=== PATIENT | female | born 1950 | race Caucasian/White ===

== ENCOUNTER 2016-11-29 08:43 | Emergency (ER) | payer OTHER ==
[~2016-11-29] VITALS: Ht 160 cm; Wt 99.3 kg
[~2016-11-29 08:43] MED LIST: ANTIVERT25 MG PO; ATIVAN0.5 M1 PO; DOXYCYCLINE MO100 MG PO; LISINOPRIL20 MG PO; PRAVASTATIN SOD80 MG PO; RANITIDINE150 MG PO; TESSALON PERLE100 MG PO
--- NOTE | 2016-11-29 08:57 | ED GI/GU/ABDOMINAL COMPLAINT ---
History of Present Illness General Chief Complaint: Nausea, Vomiting, Diarrhea Stated Complaint: N/V/D Source: patient, family, old records Exam Limitations: no limitations Vital Signs & Intake/Output Vital Signs & Intake/Output Vital Signs Date Time Temp Pulse Resp B/P B/P Pulse O2 O2 Flow FiO2 Mean Ox Delivery Rate 11/29 0846 98.1 74 15 166/95 97 Room Air Room Air Allergies Coded Allergies: MDX - PCN (penicillin) (PCN (PENICILLIN)) (Mild, HIVES 11/29/16) MDX - Sulfamethoxazole (From BACTRIM) (Mild, HIVES 11/29/16) MDX - Trimethoprim (From BACTRIM) (Mild, HIVES 11/29/16) Uncoded Allergies: CODIENE (Mild, PALPITATIONS 11/05/12) Triage Note: PT TO ED FOR NAUSEA, DRY HEAVING AND DIFFUSE ABD PAIN, AND LOWER BACK PAIN THAT STARTED THREE DAYS AGO. PT REPORTS SHE IS UNDER A LOT OF STRESS AND IS NOT SURE IF IT'S RELATED TO THAT. COMPLAINTS OF INDIGESTION. DENIES SOB. +DIARRHEA X 3 TIMES TODAY. Triage Nurses Notes Reviewed? yes ? n Is pt currently ? No HPI: Patient is a 66-year-old female presents complaining of nausea, vomiting, diarrhea, abdominal discomfort. Patient reports she's been having a diffuse epigastric nausea discomfort the past 3 days. One episode of bilious vomiting this morning, 3 episodes of diarrhea this morning. Patient with history of chronic back pain, has been worse over the past 1 week. Approximately 1.5 weeks ago patient's grandson was in a severe motor vehicle accident and is in critical condition and patient believes that her symptoms are at least partially attributable to stress and anxiety. Patient was started on BuSpar 2 days ago which helps with her nerves but has not been helping with her abdominal discomfort. Patient took 300 mg of ranitidine this morning with mild improvement. Patient also drinking seltzer with mild improvement. Positive urinary frequency Patient denies fevers, chills, chest pain, dysuria. (FELIPE SARAVIA,BATOOL) Reconcile Medications Benzonatate (Tessalon Perle) 100 MG SGL 1 CAP PO TID COUGH DOXYCYCLINE MONOHYDRATE (Doxycycline Monohydrate) 100 MG CAP 1 TAB PO BID SINUSITIS Lisinopril 20 MG TAB 1 TAB PO DAILY HEART (Reported) Lorazepam (Ativan) 0.5 MG TAB 1 TAB PO BID ANXIETY (Reported) Meclizine (Antivert) 25 MG TABLET 1 TAB PO TID PRN DIZZINESS Metoclopramide HCl (Reglan) 10 MG TABLET 1 TAB PO 4 TIMES/DAY PRN nausea Ondansetron (Zofran Odt) 4 MG TAB.RAPDIS 1 TAB SL TID PRN nausea Pravastatin Sodium 80 MG TAB 1 TAB PO QPM CHOLESTEROL (Reported) RANITIDINE HCL (Ranitidine HCl) 150 MG TAB 1 TAB PO DAILY GI (Reported) (SABIHA GOTTLIEB,HOOD Duran) Past History Travel History Traveled to [place] past 21 day No Medical History Any Pertinent Medical History? 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 No (BATOOL PALACIOS) Review of Systems Review of Systems Constitutional: Denies: chills, fever. EENTM: Reports: no symptoms. Respiratory: Denies: cough, short of breath. Cardiovascular: Denies: chest pain. GI: Reports: see HPI. Genitourinary: Reports: frequency. Musculoskeletal: Reports: back pain (BILATERAL LUMBAR). Skin: Reports: no symptoms. Neurological/Psychological: Reports: see HPI, anxiety. Hematologic/Endocrine: Reports: no symptoms. Immunologic/Allergic: Reports: no symptoms. (BATOOL PALACIOS) Physical Exam Physical Exam General Appearance: alert, awake Head: atraumatic, normal appearance Eyes: Bilateral: normal appearance, PERRL, EOMI. Ears, Nose, Throat, Mouth: hearing grossly normal, moist mucous membrane Neck: normal inspection, supple, full range of motion Respiratory: normal breath sounds, chest non-tender, no respiratory distress, lungs clear Cardiovascular: regular rate/rhythm Gastrointestinal: normal bowel sounds, soft, mild RUQ tenderness, LLQ tenderness and epigastric tenderness, no palpable pulsatile masses Back: normal inspection, normal range of motion, no vertebral tenderness Extremities: normal range of motion Neurologic/Psych: no motor/sensory deficits, awake, alert, oriented x 3, normal gait Skin: intact, normal color, warm/dry Core Measures ACS in differential dx? Yes ASA ordered for poss ACS? No-ACS ruled out Severe Sepsis Present: No Septic Shock Present: No (FELIPE SARAVIA,BATOOL) Progress Differential Diagnosis: AAA, AMI, appendicitis, bowel obstruction, diverticulitis, gastritis, hepatitis, ischemic bowel, inflamm bowel dis, kidney stone, pancreatitis, SBO, threatened AB, UTI/pyelo Plan of Care: Orders Procedure Date/time Status LACTIC ACID 11/29 1211 Active Add-on Test (ER Only) 11/30 947 Active CULTURE,URINE 11/29 910 Active URINALYSIS 11/29 910 Complete TROPONIN LEVEL 11/29 910 Complete LIPASE 11/29 910 Complete LACTIC ACID 11/29 910 Complete COMPREHENSIVE METABOLIC PANEL 11/29 910 Complete CBC WITHOUT DIFFERENTIAL 11/29 910 Complete AMYLASE 11/29 910 Complete EKG 11/29 0851 Active Laboratory Tests 11/29/16 0922: Anion Gap 10, Estimated GFR 49 L, BUN/Creatinine Ratio 13.6, Glucose 92, Lactic Acid 0.9, Calcium 9.7, Total Bilirubin 0.9, AST 23, ALT 40, Alkaline Phosphatase 81, Troponin I < 0.01, Total Protein 7.3, Albumin 4.4, Globulin 2.9, Albumin/ Globulin Ratio 1.5, Amylase 66, Lipase 48, CBC w Diff NO MAN DIFF REQ, RBC 5.19, MCV 85.8, MCH 28.5, RDW 14.7 H, MPV 8.2, Gran % 63.9, Lymphocytes % 27.7, Monocytes % 7.2, Eosinophils % 0.6, Basophils % 0.6, Absolute Granulocytes 4.4, Absolute Lymphocytes 1.9, Absolute Monocytes 0.5, Absolute Eosinophils 0, Absolute Basophils 0, PUBS MCHC 33.3 11/29/16 0918: Urinalysis LIGHT H, Urine Color YEL, Urine Clarity CLEAR, Urine pH 5.5, Ur Specific [place] >= 1.030, Urine Protein NEG, Urine Ketones NEG, Urine Nitrite NEG, Urine Bilirubin NEG, Urine Urobilinogen 0.2, Ur Leukocyte Esterase NEG, Ur Microscopic SEDIMENT EXAMINED, Urine RBC 1-3, Urine WBC 1-3 H, Ur Epithelial Cells FEW, Urine Bacteria FEW H, Urine Mucus FEW, Urine Hemoglobin SMALL H, Urine Glucose NEG Microbiology 11/29 910 URINE ROUT: Urine Culture - RECD 1050: Discussed with and seen by Dr. Sears. Results discussed with patient. Patient afebrile, nontoxic-appearing, appears stable for discharge with outpatient follow-up. (FELIPE SARAVIA,BATOOL) Diagnostic Imaging: Viewed by Me: CT Scan. Discussed w/RAD: CT Scan. Initial ED EKG: normal axis, normal intervals, normal p-waves, normal QRS complex, normal sinus rhythm, no ST T wave changes Prior EKG: unchanged Comments: PATIENT: ASHA TAY PRESENT AGE: 66 PATIENT ACCOUNT NO: [id number] : 48 LOCATION: [facility] ORDERING PHYSICIAN: BATOOL SARAVIA SERVICE DATE: 11/29/16 EXAM TYPE: CAT - CT ABD & PELVIS W IV CONTRAST EXAMINATION: CT ABDOMEN AND PELVIS WITH CONTRAST CLINICAL INFORMATION: 66-year-old female with vomiting, diarrhea and mid left abdominal pain. COMPARISON: None TECHNIQUE: Multidetector volumetric imaging was performed of the abdomen and pelvis before and after the IV administration of 98 mL of Optiray 320 intravenous contrast. Sagittal and coronal reformatted images were obtained on the technologist's workstation. DLP: 839.93 mGy-cm FINDINGS: LUNG BASES: Mild dependent atelectasis is noted. There is also mild linear subsegmental atelectasis scarring seen within the right middle lobe. No pericardial effusion. LIVER, GALLBLADDER, AND BILIARY TREE: The liver is normal in size, shape, and attenuation. No focal hepatic lesion or biliary ductal dilatation is present. The patient is status post cholecystectomy. PANCREAS: Unremarkable. SPLEEN: Unremarkable. ADRENAL GLANDS: Unremarkable. KIDNEYS AND URETERS: The kidneys are normal in size, shape, and attenuation. No hydronephrosis, hydroureter, or calculi seen. No perinephric stranding. BLADDER: Unremarkable. GASTROINTESTINAL TRACT: There is no bowel obstruction, free intraperitoneal air or fluid. The appendix is within normal limits. Mild colonic diverticulosis is noted without CT evidence of acute diverticulosis. ABDOMINAL WALL: No significant hernia is appreciated. LYMPH NODES: No mesenteric, retroperitoneal or pelvic lymphadenopathy. VASCULAR: Nonaneurysmal abdominal aorta containing mild atherosclerotic calcification. Mild vascular calcifications noted within the left kidney. Portal veins are patent. PELVIC VISCERA: Uterus is not visualized. No adnexal mass. No pelvic free fluid. OSSEOUS STRUCTURES: No aggressive osseous lesions. Degenerative changes are seen throughout the thoracolumbar spine with moderate to severe degenerative disc disease identified. IMPRESSION: 1. No acute intra-abdominal or pelvic abnormality. 2. Mild diverticulosis without CT evidence of acute diverticulosis. DICTATED BY: JAMES REYNOLDS DO DATE/TIME DICTATED:11/29/161024 REAL ESTATE PROFESSIONAL:DILAN DATE/TIME TRANSCRIBED:11/29/161024 CONFIDENTIAL, DO NOT COPY WITHOUT APPROPRIATE AUTHORIZATION. <Electronically signed in Other Vendor System> SIGNED BY: JAMES REYNOLDS DO 1040 (BATOOL PALACIOS) Departure Departure Disposition: HOME OR SELF CARE Condition: Stable Clinical Impression Primary Impression: Abdominal discomfort Secondary Impressions: Grief reaction Referrals: LINDA CASTRO,SINDI Murcia (PCP/Family) Additional Instructions: Follow up with her primary care provider within one week for further evaluation. Return to the emergency department if unable to stay hydrated, fevers, or worsening of symptoms. 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 I have also reviewed all the pertinent lab results and diagnostic results. I agree with the findings and the plan of care as documented in the PA's/ELEMENTARY SCHOOL ART TEACHER's documentation. [] I have reviewed the ED Record and agree with the PA's/ELEMENTARY SCHOOL ART TEACHER's documentation. [] Additions or exceptions (if any) to the PAs/ELEMENTARY SCHOOL ART TEACHER's note and plan are summarized below: [] (SABIHA GOTTLIEB,HOOD Duran)
[2016-11-29 09:46] LABS: ABSOLUTE BASOPHIL COUNT 0 /CUMM (0.0-0.2); ABSOLUTE EOSINOPHIL COUNT 0 /CUMM (0.0-0.7); ABSOLUTE GRANULOCYTE CT 4.4 /CUMM (1.4-6.5); ABSOLUTE LYMPH COUNT 1.9 /CUMM (1.2-3.4); ABSOLUTE MONOCYTE COUNT 0.5 /CUMM (0.10-0.60); BASOPHIL % 0.6 % (0.0-2.0); EOSINOPHIL % 0.6 % (0-5); GRANULOCYTE % 63.9 % (42.2-75.2); HEMATOCRIT 44.5 % (37-47); MEAN CORPUSCULAR HGB 28.5 PG (27.0-31.0); MEAN CORPUSCULAR HGB CONC 33.3 G/DL (33.0-37.0); MEAN CORPUSCULAR VOLUME 85.8 FL (81.0-99.0); MEAN PLATELET VOLUME 8.2 FL (7.4-10.4); PLATELET COUNT 222 /CUMM (130-400); RBC DISTRIBUTION WIDTH 14.7 % (11.5-14.5); RED BLOOD CELL CT 5.19 /CUMM (4.20-5.40); WHITE BLOOD CELL COUNT 6.9 /CUMM (4.8-10.8)
--- NOTE | 2016-11-29 10:40 | CT SCAN REPORT ---
EXAMINATION: CT ABDOMEN AND PELVIS WITH CONTRAST CLINICAL INFORMATION: 66-year-old female with vomiting, diarrhea and mid left abdominal pain. COMPARISON: None TECHNIQUE: Multidetector volumetric imaging was performed of the abdomen and pelvis before and after the IV administration of 98 mL of Optiray 320 intravenous contrast. Sagittal and coronal reformatted images were obtained on the technologist's workstation. DLP: 839.93 mGy-cm FINDINGS: LUNG BASES: Mild dependent atelectasis is noted. There is also mild linear subsegmental atelectasis scarring seen within the right middle lobe. No pericardial effusion. LIVER, GALLBLADDER, AND BILIARY TREE: The liver is normal in size, shape, and attenuation. No focal hepatic lesion or biliary ductal dilatation is present. The patient is status post cholecystectomy. PANCREAS: Unremarkable. SPLEEN: Unremarkable. ADRENAL GLANDS: Unremarkable. KIDNEYS AND URETERS: The kidneys are normal in size, shape, and attenuation. No hydronephrosis, hydroureter, or calculi seen. No perinephric stranding. BLADDER: Unremarkable. GASTROINTESTINAL TRACT: There is no bowel obstruction, free intraperitoneal air or fluid. The appendix is within normal limits. Mild colonic diverticulosis is noted without CT evidence of acute diverticulosis. ABDOMINAL WALL: No significant hernia is appreciated. LYMPH NODES: No mesenteric, retroperitoneal or pelvic lymphadenopathy. VASCULAR: Nonaneurysmal abdominal aorta containing mild atherosclerotic calcification. Mild vascular calcifications noted within the left kidney. Portal veins are patent. PELVIC VISCERA: Uterus is not visualized. No adnexal mass. No pelvic free fluid. OSSEOUS STRUCTURES: No aggressive osseous lesions. Degenerative changes are seen throughout the thoracolumbar spine with moderate to severe degenerative disc disease identified. IMPRESSION: 1. No acute intra-abdominal or pelvic abnormality. 2. Mild diverticulosis without CT evidence of acute diverticulosis.
[2016-11-29] MEDS ORDERED: ZOFRAN ODT4 M1 SL (10:48)
[2016-11-29 11:10] VITALS: BP 172/86
[2016-11-29] MEDS ORDERED: REGLAN10 M1 PO (11:14)
== END 2016-11-29 11:11 ==
LOC: ERH 08:43
PROVIDERS: Physician Assistant
DX: F43.20 Adjustment disorder, unspecified (principal); R10.13 Epigastric pain
CPT/HCPCS: 74177; 81001; 87086; 93005; 93010

== ENCOUNTER 2016-12-29 17:50 | Emergency (ER) | payer OTHER ==
[~2016-12-29] VITALS: Ht 162.6 cm; Wt 101.6 kg
[~2016-12-29 17:50] MED LIST changes: +REGLAN10 M1 PO; +ZOFRAN ODT4 M1 SL
--- NOTE | 2016-12-29 18:15 | ED GENERAL ADULT ---
History of Present Illness General Chief Complaint: Female Urogenital Problems Stated Complaint: ?UTI Source: patient Exam Limitations: no limitations Vital Signs & Intake/Output Vital Signs & Intake/Output Vital Signs Date Time Temp Pulse Resp B/P B/P Pulse O2 O2 Flow FiO2 Mean Ox Delivery Rate 12/29 1921 97.7 102 17 134/89 98 Room Air 12/29 1758 98.9 105 16 139/91 98 Room Air Room Air ED Intake and Output 12/30 0000 12/29 1200 Intake Total Output Total Balance Patient 224 lb Weight Weight Standing Scale Measurement Method Allergies Coded Allergies: Penicillins (HIVES, WELTS 12/29/16) codeine (PALPITATIONS 12/29/16) diphenhydramine (From BENADRYL) (PALPITATIONS 12/29/16) sulfamethoxazole (From BACTRIM) (HIVES 12/29/16) trimethoprim (From BACTRIM) (HIVES 12/29/16) Reconcile Medications Ciprofloxacin HCl 250 MG TABLET 1 TAB PO BID ANTIBIOTIC (Reported) Lisinopril 20 MG TABLET 1 TAB PO DAILY BP (Reported) Lorazepam (Ativan) 0.5 MG TABLET 1 TAB PO BID ANXIETY (Reported) Metoclopramide HCl (Reglan) 10 MG TABLET 1 TAB PO PRN GI (Reported) 30 minutes before meals and bedtime Montelukast Sodium 10 MG TABLET 1 TAB PO DAILY ALLERGIES (Reported) Nitrofurantoin Monohyd/M-Cryst (Macrobid 100 MG Capsule) 100 MG CAPSULE 1 CAP PO BID uti with food Nitrofurantoin Monohyd/M-Cryst (Macrobid 100 MG Capsule) 100 MG CAPSULE 1 CAP PO BID uti with food [place]-3 Fatty Acids ([place]-3) (Unknown Strength) CAPSULE (Unknown Dose) PO DAILY SUPPLEMENT (Reported) Phenazopyridine HCl (Pyridium) 100 MG TABLET 1 TAB PO TID PRN dysuria Phenazopyridine HCl (Pyridium) 100 MG TABLET 1 TAB PO TID PRN uti Pravastatin Sodium 80 MG TABLET 1 TAB PO DAILY CHOLESTEROL (Reported) Triage Note: PT TO TRIAGE FOR LWOER PELVIS AND GROIN PAIN FOR 4 DAYS. PT STATES SHE HAS BEEN TAKING CIPRO FOR 32 DAYS WITHOUT RELEIF. PT DENIES BLOOD IN URINE BUT HAS BURNING. PT DENIES FEVERS. PT ALSO STATES SHE HAS LOWER BACK PAIN Triage Nurses Notes Reviewed? yes Onset: Gradual Duration: day(s): (3) Timing: recent history Injury Environment: home Severity: moderate Severity Numbers: 5 Modifying Factors: Worsens With: other (urinating). HPI: Patient is a 66 denies any back pain.-year-old female presenting to the emergency Department chief complaint of burning with urination, frequency and hesitancy that have been going on for the past 3 days. She called her primary care physician and they called her in [facility]. She has been taking 250 mg twice a day since then without relief. No nausea no vomiting no fevers or chills. Denies chest pain or palpitations. Denies any hematuria that she has noticed. Past History Travel History Traveled to [place] past 21 day No Medical History Any Pertinent Medical History? 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 No Review of Systems Review of Systems Constitutional: Reports: no symptoms. Comments Review of systems: See HPI, All other systems negative. Constitutional, no chills fever or weight loss HEENT: No visual changes no sore throat no congestion Cardiovascular: No chest pain ,palpitation Skin, no jaundice no rashes Respiratory: No dyspnea cough sputum or hemoptysis GI: No nausea no vomiting : No hematuria Muscle skeletal: no back pain, no neck pain, Neurologic: No numbness no confusion, no headache Psych: No stress anxiety or depression,. Heme/endocrine: No bruising no bleeding no polyuria or polydipsia Immunology: No splenectomy or history of AIDS Physical Exam Physical Exam General Appearance: well developed/nourished, no apparent distress, alert, awake , comfortable Comments: Well-developed well-nourished person in no acute distress HEENT: Pupils equally round and reactive to light and accommodation. Nose is atraumatic. Neck: Normal inspection Back: Nontender, no CVA tenderness. Full range of motion Cardiovascular: Regular rate and rhythms no murmurs rubs or gallops, normal JVP Respiratory: Chest nontender. No respiratory distress.breath sounds clear to auscultation bilaterally Abdomen: Soft, nontender nondistended, no appreciable organomegaly. Normal bowel sounds. No ascites, no rebound or guarding. Extremity: No edema Neuro: Alert oriented x3 Skin: No appreciable rash on exposed skin, skin is warm and dry. Psych: Mood and affect is normal, memory and judgment is normal. Core Measures ACS in differential dx? No CVA/TIA Diagnosis: No Severe Sepsis Present: No Septic Shock Present: No Progress Differential Diagnoses I considered the following diagnoses in my evaluation of the patient: Urinary tract infection, pyelonephritis, hydronephrosis, kidney stone Plan of Care: Orders Procedure Date/time Status CULTURE,URINE 12/29 1750 Active URINALYSIS 12/29 1750 Complete Laboratory Tests 12/29/161838: Urine Color YEL, Urine Clarity HAZY H, Urine pH 5.5, Ur Specific [place] >= 1.030, Urine Protein NEG, Urine Ketones NEG, Urine Nitrite NEG, Urine Bilirubin NEG, Urine Urobilinogen 0.2, Ur Leukocyte Esterase NEG, Ur Microscopic SEDIMENT EXAMINED, Urine WBC 5-10 H, Ur Epithelial Cells MANY H, Urine Bacteria MANY H , Urine Hemoglobin NEG, Urine Glucose NEG Microbiology 12/29 1838 URINE ROUT: Urine Culture - RES Initial ED EKG: none Comments: patient is afebrile in no acute distress. No abdominal pain, no CVA tenderness. We'll assess urinalysis to check for UTI. We'll also send off urine culture. Patient nontoxic. 12/29/2016 7:07:42 PM patient not having any right lower quadrant pain. No fevers. Urinalysis is unclear at this time as this many epithelial cells although patient was recently on Cipro which could cloud urinalysis results. Patient will be switched to Macrobid. Urine culture sent. Patient will return if she develops any right lower quadrant abdominal pain any fevers or concerns. Departure Departure Time of Disposition: 1907 Disposition: HOME OR SELF CARE Condition: Stable Clinical Impression Primary Impression: Urinary tract infection Qualifiers: Urinary tract infection type: site unspecified Hematuria presence: without hematuria Qualified Code: N39.0 - Urinary tract infection, site not specified Referrals: LINDA CASTRO,SINDI Murcia (PCP/Family) Additional Instructions: Follow-up with your primary care call to make an appointment. Increase fluids. Take Pyridium and Macrobid as prescribed. Return for any worsening symptoms or concerns or if he develops any right lower quadrant abdominal pain or fevers. Departure Forms: Customer Survey D/C INS-APPENDICITIS EXCLUSION General Discharge Information Prescriptions: Current Visit Scripts Phenazopyridine HCl (Pyridium) 1 TAB PO TID PRN dysuria #6 TAB Nitrofurantoin Monohyd/M-Cryst (Macrobid 100 MG Capsule) 1 CAP PO BID #14 CAP with food Nitrofurantoin Monohyd/M-Cryst (Macrobid 100 MG Capsule) 1 CAP PO BID #14 CAP with food Phenazopyridine HCl (Pyridium) 1 TAB PO TID PRN uti #6 TAB Critical Care Note Critical Care Note Critical Care Time: non-applicable
[2016-12-29] MEDS ORDERED: LISINOPRIL20 M1 PO (18:32)
[2016-12-29] MEDS ORDERED: CIPROFLOXACIN250 M1 PO (18:32)
[2016-12-29] MEDS ORDERED: PRAVASTATIN SOD80 M2 PO (18:32)
[2016-12-29] MEDS ORDERED: MONTELUKAST SOD10 M1 PO (18:32)
[2016-12-29] MEDS ORDERED: OMEGA-31000 M1 PO (18:33)
[2016-12-29] MEDS ORDERED: REGLAN10 M1 PO (18:34)
[2016-12-29] MEDS ORDERED: MACROBID 100 M100 MG PO ×2 (19:11→19:15)
[2016-12-29] MEDS ORDERED: PYRIDIUM100 M1 PO ×2 (19:11→19:15)
[2016-12-29 19:21] VITALS: BP 134/89
== END 2016-12-29 19:22 ==
LOC: ERH 17:50
DX: N39.0 Urinary tract infection, site not specified (principal)
CPT/HCPCS: 81001; 87086

== ENCOUNTER 2017-12-15 17:21 | Emergency (ER) | payer OTHER ==
[~2017-12-15] VITALS: Ht 160 cm; Wt 103.9 kg
[~2017-12-15 17:21] MED LIST changes: +CIPROFLOXACIN250 M1 PO; +LISINOPRIL20 M1 PO; +MACROBID 100 M100 MG PO; +MONTELUKAST SOD10 M1 PO; +OMEGA-31000 M1 PO; +PRAVASTATIN SOD80 M2 PO; +PYRIDIUM100 M1 PO
--- NOTE | 2017-12-15 18:47 | ED GENERAL ADULT ---
History of Present Illness General Chief Complaint: Lower Extremity Problems Stated Complaint: "I THINK I PULLED MY GROIN" Source: patient Exam Limitations: no limitations Vital Signs & Intake/Output Vital Signs & Intake/Output Vital Signs Date Time Temp Pulse Resp B/P B/P Pulse O2 O2 Flow FiO2 Mean Ox Delivery Rate 12/15 1859 98.1 78 18 145/82 98 Room Air 12/15 1726 97.9 80 18 175/99 97 Room Air Allergies Coded Allergies: Penicillins (HIVES, WELTS 12/29/16) codeine (PALPITATIONS 12/29/16) diphenhydramine (From BENADRYL) (PALPITATIONS 12/29/16) sulfamethoxazole (From BACTRIM) (HIVES 12/29/16) trimethoprim (From BACTRIM) (HIVES 12/29/16) Triage Note: PT STATES THAT SINCE LAST PM SHE HAS BEEN HAVING INTERMITTANT L GROIN PAIN , PAIN FREE AT THIS TIME, STATES THAT IF SHE WALKS SLOW SHE IS OK, BUT IF SHE TRIES TO WALK NORMAL SHE GETS SHARP PAIN THAT ALMOST MAKES HER FALL. PT STATES THAT [place] AND SITTING IN A LOW CHAIR AND IT WAS DIFFICULT TO GET OUT OF IT, " STATES THAT MAYBE I PULLED SOMETHING GETTING OUT OF CHAIR" Triage Nurses Notes Reviewed? yes Onset: Abrupt Duration: intermittent Timing: remote history Injury Environment: [place] Severity: mild Modifying Factors: Worsens With: movement. HPI: 67-year-old female presents to the emergency room reporting left groin pain. She states [place] the [place] sitting [place] in [place] chair and when she went to go get up she feels she pulled her left groin. She states that it does not hurt while sitting or while laying down but from time to time while walking she feels as though her left groin gives out on her. She denies having fallen because of this. She denies needing crutches as well. She denies any nausea, vomiting, diarrhea. She has not taken any pain medication for this. She reports several years back the same thing happening in the right groin and feeling the same way. She states at that time she did not do anything for this and it resolved spontaneously. (Corrine Gerard) Reconcile Medications Ciprofloxacin HCl 250 MG TABLET 1 TAB PO BID ANTIBIOTIC (Reported) Cyclobenzaprine HCl 5 MG TABLET 1 TAB PO TIDPRN pain Ibuprofen 800 MG TABLET 1 TAB PO TID pain Lisinopril 20 MG TABLET 1 TAB PO DAILY BP (Reported) Lorazepam (Ativan) 0.5 MG TABLET 1 TAB PO BID ANXIETY (Reported) Metoclopramide HCl (Reglan) 10 MG TABLET 1 TAB PO PRN GI (Reported) 30 minutes before meals and bedtime Montelukast Sodium 10 MG TABLET 1 TAB PO DAILY ALLERGIES (Reported) Nitrofurantoin Monohyd/M-Cryst (Macrobid 100 MG Capsule) 100 MG CAPSULE 1 CAP PO BID uti with food Nitrofurantoin Monohyd/M-Cryst (Macrobid 100 MG Capsule) 100 MG CAPSULE 1 CAP PO BID uti with food [place]-3 Fatty Acids ([place]-3) (Unknown Strength) CAPSULE (Unknown Dose) PO DAILY SUPPLEMENT (Reported) Phenazopyridine HCl (Pyridium) 100 MG TABLET 1 TAB PO TID PRN dysuria Phenazopyridine HCl (Pyridium) 100 MG TABLET 1 TAB PO TID PRN uti Pravastatin Sodium 80 MG TABLET 1 TAB PO DAILY CHOLESTEROL (Reported) (Clarence Edmonds MD) Past History Travel History Traveled to [place] past 21 day No Medical History Any Pertinent Medical History? 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 No (Corrine Gerard) Review of Systems Review of Systems Constitutional: Reports: no symptoms. EENTM: Reports: no symptoms. Respiratory: Reports: no symptoms. Cardiovascular: Reports: no symptoms. GI: Reports: no symptoms. Genitourinary: Reports: no symptoms. Musculoskeletal: Reports: see HPI. Skin: Reports: no symptoms. Neurological/Psychological: Reports: no symptoms. Hematologic/Endocrine: Reports: no symptoms. Immunologic/Allergic: Reports: no symptoms. All Other Systems: Reviewed and Negative (Corrine Gerard) Physical Exam Physical Exam General Appearance: well developed/nourished, no apparent distress, alert, awake , comfortable Head: atraumatic, normal appearance Eyes: Bilateral: normal appearance. Ears, Nose, Throat: hearing grossly normal Neck: normal inspection, full range of motion Respiratory: normal breath sounds, chest non-tender, no respiratory distress Cardiovascular: regular rate/rhythm Peripheral Pulses: 3+ dorsalis pedis (R), 3+ dorsalis pedis (L) Gastrointestinal: normal bowel sounds, soft, non-tender Back: normal inspection, normal range of motion Extremities: normal inspection, normal range of motion Neurologic/Psych: no motor/sensory deficits, awake, alert, oriented x 3, normal gait, normal mood/affect Skin: intact, normal color, warm/dry Comments: No hernia appreciated in left groin with valsalva. No tenderness to palpation of the area. No skin changes. Core Measures ACS in differential dx? No CVA/TIA Diagnosis: No Sepsis Present: No Sepsis Focused Exam Completed? No Diagram Body: 1) (Corrine Gerard) Progress Differential Diagnoses I considered the following diagnoses in my evaluation of the patient: [ musculoskeletal strain/sprain, femoral hernia] Plan of Care: 67-year-old female presented to the emergency department with left groin strain. Given exam findings, patient discharged on muscle relaxer and anti- inflammatory. She was advised to return to the emergency department with any continued symptoms, or concerns for her well-being. Initial ED EKG: none (Corrine Gerard) Departure Departure Disposition: HOME OR SELF CARE Condition: Stable Clinical Impression Primary Impression: Groin injury Qualifiers: Encounter type: initial encounter Qualified Code: S39.91XA - Unspecified injury of abdomen, initial encounter Referrals: Unknown (PCP/Family) Additional Instructions: Take Flexeril as prescribed for muscle relaxant. Take ibuprofen as prescribed for pain. Rest and ice. Follow-up with primary care outpatient this week. Return to the emergency department with worsening symptoms or other concerns for well-being. Departure Forms: Customer Survey General Discharge Information Prescriptions: Current Visit Scripts Cyclobenzaprine HCl 1 TAB PO TIDPRN #15 TAB Ibuprofen 1 TAB PO TID #30 TAB (Corrine Gerard) PA/DIRECTOR OF LABORATORY OPERATIONS Co-Sign Statement Statement: ED Attending supervision documentation- x I saw and evaluated the patient. I have also reviewed all the pertinent lab results and diagnostic results. I agree with the findings and the plan of care as documented in the PA's/DIRECTOR OF LABORATORY OPERATIONS's documentation. [] I have reviewed the ED Record and agree with the PA's/DIRECTOR OF LABORATORY OPERATIONS's documentation. [] Additions or exceptions (if any) to the PAs/DIRECTOR OF LABORATORY OPERATIONS's note and plan are summarized below: [] (Grey GOTTLIEB,Clarence) Critical Care Note Critical Care Note Critical Care Time: non-applicable (Corrine Gerard)
[2017-12-15 18:59] VITALS: BP 145/82
[2017-12-15] MEDS ORDERED: IBUPROFEN800 M1 PO (19:00)
[2017-12-15] MEDS ORDERED: CYCLOBENZAPRINE5 M2 PO (19:00)
== END 2017-12-15 19:06 ==
LOC: ERH 17:21
DX: S39.91XA Unspecified injury of abdomen, initial encounter (principal); X50.9XXA Other and unspecified overexertion or strenuous movements or postures, initial encounter; Y93.89 Activity, other specified; Y92.832 Beach as the place of occurrence of the external cause